=== PATIENT | male | born 1955 | race Caucasian/White ===

== ENCOUNTER → 2018-08-28 | Outpatient (CLI) | payer MEDICARE, OTHER ==
--- NOTE | 2018-08-29 09:44 | REP ---
MRI left shoulder without contrast: History: Left shoulder pain. No comparison imaging. Technique: Axial, oblique coronal, and oblique sagittal imaging planes are utilized. T1 and T2-weighted scans were included with and without fat saturation. MRI findings: There is some marrow edema and subcortical cyst formation on either side of the osteoarthritic hypertrophied AC joint. This articulation is normally aligned. There is subcortical cyst formation in the superolateral humeral head. This finding may correlate with impingement. Cortical and medullary bone signal intensity are otherwise normal. Oblique coronal T1-weighted scans show some thickening and increased signal intensity diffusely in the supraspinatus tendon consistent with tendinosis. There is no evidence of focal rotator cuff tear. A small quantity of glenohumeral joint fluid is seen. No subacromial subdeltoid bursal effusion is appreciated. There is fraying and increased signal intensity in the anterior and posterior labral cartilage and a nondisplaced posterior labral tear is suspected. There is some fraying of the superior labrum as well. The subscapularis tendon and biceps tendons appear intact. Infraspinatus tendon is unremarkable. There is moderate central glenoid chondromalacia. 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 Considerable fraying and irregularity of the glenoid labral cartilage especially posteriorly where a degenerative nondisplaced tear is suspected. Tendinosis tendonitis change in the supraspinatus tendon. Electronically Signed by Olvin Novak MD 08/29/2018 11:28 A
== END ==
LOC: M RAD 18:11
PROVIDERS: ATTEND Orthopaedic Surgery
DX: M25.512 Pain in left shoulder (principal)

== ENCOUNTER → 2020-07-29 | Outpatient (CLI) | payer MEDICARE, BC ==
[~2020-07-29] MED LIST: ATOR40TA75 PO; CARV12.5 PO; ECOT81TA5 PO; LISI2.5T2 PO; VITA500C24 PO; VITMTA PO
== END ==
LOC: M LABSMTC 11:17
PROVIDERS: ATTEND Anesthesiology
DX: Z01.818 Encounter for other preprocedural examination (principal); Z20.828 Contact with and (suspected) exposure to other viral communicable diseases

== ENCOUNTER 2020-08-03 07:51 | Day surgery (SDC) | payer MEDICARE, BC ==
[~2020-08-03] VITALS: Ht 182.9 cm; Wt 94.8 kg
[~2020-08-03 07:51] MED LIST changes: +NS 1,000 ML IV ONE
[2020-08-03] MEDS ORDERED: propofoL 500 MG/50 ML VIAL As Ordered ONE (08:35)
[2020-08-03] MEDS ORDERED: LIDOCAINE 2% 100MG/5ML SDV (FOR ANES.) As Ordered ONE (08:35)
--- NOTE | 2020-08-03 08:50 | ROOR ---
Patient Name: Chuck Ventura Procedure Date: 08/03/2020 8:26 AM Date of : 1955 Age: 65 Room: [facility] Gender: Male Note Status: Finalized Procedure: Colonoscopy Indications: High risk colon cancer surveillance: Personal history of colonic polyps Providers: Ari Newton Jr, MD Referring MD: VICKY KUHN MD Requesting Provider: Medicines: Propofol per Anesthesia Complications: No immediate complications. Procedure: Pre-Anesthesia Assessment: - Prior to the procedure, a History and Physical was performed, and patient medications and allergies were reviewed. The patient is competent. The risks and benefits of the procedure and the sedation options and risks were discussed with the patient. All questions were answered and informed consent was obtained. Patient identification and proposed procedure were verified by the physician and the nurse in the pre-procedure area and in the procedure room. Mental Status Examination: alert and oriented. Airway Examination: normal oropharyngeal airway and neck mobility. Respiratory Examination: clear to auscultation. CV Examination: normal. ASA Grade Assessment: II - A patient with mild systemic disease. After reviewing the risks and benefits, the patient was deemed in satisfactory condition to undergo the procedure. The anesthesia plan was to use moderate sedation / analgesia (conscious sedation). Immediately prior to administration of medications, the patient was re-assessed for adequacy to receive sedatives. The heart rate, respiratory rate, oxygen saturations, blood pressure, adequacy of pulmonary ventilation, and response to care were monitored throughout the procedure. The physical status of the patient was re-assessed after the procedure. The Colonoscope was introduced through the anus and advanced to the cecum, identified by appendiceal orifice and ileocecal valve. The colonoscopy was performed without difficulty. The patient tolerated the procedure well. The quality of the bowel preparation was adequate. Findings: The recto-sigmoid colon, descending colon, transverse colon, ascending colon, cecum, appendiceal orifice and ileocecal valve appeared normal. A few small-mouthed diverticula were found in the sigmoid colon. A small polyp was found in the rectum. The polyp was removed with a jumbo cold forceps. Resection and retrieval were complete. Impression: - The recto-sigmoid colon, descending colon, transverse colon, ascending colon, cecum, appendiceal orifice and ileocecal valve are normal. - Diverticulosis in the sigmoid colon. - One small polyp in the rectum, removed with a jumbo cold forceps. Resected and retrieved. Recommendation: - Discharge patient to home (ambulatory). - Repeat colonoscopy in 5 years for surveillance. Procedure Code(s): --- Professional --- 12595, Colonoscopy, flexible; with biopsy, single or multiple Diagnosis Code(s): --- Professional --- Z86.010, Personal history of colonic polyps K62.1, Rectal polyp K57.30, Diverticulosis of large intestine without perforation or abscess without bleeding CPT copyright 2019 [employer]. All rights reserved. The codes documented in this report are preliminary and upon sample color maker review may be revised to meet current compliance requirements. Ari Newton MD Ari Newton Jr, MD 08/03/2020 8:50:26 AM Electronically signed by Ari Newton Jr, MD Number of Addenda: 0 Note Initiated On: 08/03/2020 8:26 AM Estimated Blood Loss: Estimated blood loss: none.
[2020-08-03 09:15] VITALS: BP 115/71
== END 2020-08-03 09:14 | disposition home or self-care (01) ==
LOC: M OPP 07:51
PROVIDERS: ATTEND Surgery
DX: Z12.11 Encounter for screening for malignant neoplasm of colon (principal); Z86.010 Personal history of colon polyps; K62.1 Rectal polyp; K57.90 Diverticulosis of intestine, part unspecified, without perforation or abscess without bleeding

== ENCOUNTER → 2022-03-14 | Outpatient (REF) | payer MEDICARE, BC ==
[~2022-03-14] MED LIST changes: -LISI2.5T2 PO; +LISI2.5T9 PO; -NS 1,000 ML IV ONE
== END ==
LOC: M SFHCDERM 10:11
PROVIDERS: ATTEND Nurse Practitioner Family
DX: D04.61 Carcinoma in situ of skin of right upper limb, including shoulder (principal)

== ENCOUNTER 2024-10-15 10:41 | Day surgery (SDC) | payer MEDICARE, BC ==
[~2024-10-15] VITALS: Ht 185.4 cm; Wt 88.9 kg
[~2024-10-15 10:41] MED LIST changes: +FAMO20TA PO; +THERTAB52 PO
[2024-10-15] MEDS ORDERED: fentaNYL 100 MCG/2 ML INJECTION As Ordered ONE (11:07)
[2024-10-15 11:22] VITALS: TEMP 97.6
[2024-10-15 11:34] VITALS: BP 135/74; O2SAT 96
[2024-10-15] MEDS ORDERED: propofoL 200 MG/20 ML VIAL As Ordered ONE (12:11)
== END 2024-10-15 11:51 | disposition home or self-care (01) ==
LOC: M OPP 10:41
PROVIDERS: ATTEND Surgery
DX: K22.70 Barrett's esophagus without dysplasia (principal); K44.9 Diaphragmatic hernia without obstruction or gangrene; K29.70 Gastritis, unspecified, without bleeding; Z86.73 Personal history of transient ischemic attack (TIA), and cerebral infarction without residual deficits; Z95.5 Presence of coronary angioplasty implant and graft; Z79.899 Other long term (current) drug therapy; Z87.891 Personal history of nicotine dependence; Z95.1 Presence of aortocoronary bypass graft
CPT/HCPCS: 43239; 88305; J3010